=== PATIENT | female | born 1970 | race Caucasian/White ===

== ENCOUNTER 2019-03-21 15:18 | Emergency (ER) | payer MEDICAID ==
[~2019-03-21] VITALS: Ht 167.6 cm; Wt 88.9 kg
[2019-03-21 15:43] VITALS: Ht 167.6 cm; Wt 88.9 kg
[2019-03-21 20:39] LABS: BASOPHIL % 0.5 % (0-2); PLATELET COUNT 355 x10^3mcL (130-400)
[2019-03-21 20:43] LABS: RED CELL DISTRIBUTION WIDTH 17.4 % (11.5-14.5)
[2019-03-21 20:46] LABS: CALCIUM 8.3 mg/dL (8.5-10.1); CARBON DIOXIDE 24.9 mmol/L (21-32); CHLORIDE SERUM 102 mmol/L (98-107); CREATININE SERUM 0.6 mg/dL (0.6-1.0); GFR1 > 60 mL/min; GLUCOSE SERUM 229 mg/dL (74-106); POTASSIUM SERUM 3.9 mmol/L (3.5-5.1); SODIUM SERUM 137 mmol/L (136-145)
[2019-03-21 20:51] LABS: ALBUMIN 3.4 g/dL (3.4-5.0); ALKALINE PHOSPHATASE 99 U/L (46-116); ALT/SGPT 22 U/L (14-59); AST/SGOT 12 U/L (15-37); BILIRUBIN TOTAL 0.27 mg/dL (0.20-1.00)
[2019-03-21 22:32] VITALS: BP 150/94
== END 2019-03-21 22:32 | disposition home or self-care (01) ==
LOC: ED 15:18
PROVIDERS: Emergency Medicine
DX: J40 Bronchitis, not specified as acute or chronic (principal); I10 Essential (primary) hypertension; E78.00 Pure hypercholesterolemia, unspecified; H10.89 Other conjunctivitis; E11.65 Type 2 diabetes mellitus with hyperglycemia
CPT/HCPCS: 82962; 87804; J7030; J7620